=== PATIENT | male | born 1975 | race Caucasian/White ===

== ENCOUNTER → 2016-11-06 | Outpatient (CLI) | payer OTHER | LOC: KOH-I 14:40 | DX: M79.642 Pain in left hand (principal); M79.89 Other specified soft tissue disorders | CPT/HCPCS: 73130 ==

== ENCOUNTER 2021-12-30 13:08 | Emergency (ER) | payer OTHER ==
[~2021-12-30 13:08] MED LIST: ADVAIR HFA 115/1 INH INH; CELEXA40 MG PO; NORCO 5-325 TA1 EACH PO; PRINIVIL10 MG PO; PROTONIX40 MG PO; WELLBUTRIN SR150 M1 PO
[2021-12-30] MEDS ORDERED: BACITRACIN28.4 GM TP (13:30)
== END 2021-12-30 13:55 | disposition home or self-care (01) ==
LOC: ER1 13:08
DX: T23.222A Burn of second degree of single left finger (nail) except thumb, initial encounter (principal); E78.5 Hyperlipidemia, unspecified; X08.8XXA Exposure to other specified smoke, fire and flames, initial encounter
CPT/HCPCS: 90471; 90715; 99283